=== PATIENT | female | born 1965 | race Hispanic/Latino ===

== ENCOUNTER 2016-11-16 12:30 | Emergency (ER) | payer BC ==
[2016-11-16 12:34] VITALS: BMI 42.5
[2016-11-16 12:39] VITALS: BP 143/87; PULSE 78; RESP 20; TEMP 98.7; O2SAT 99
--- NOTE | 2016-11-16 13:36 | ED PDOC ---
Arrival/HPI - History of Present Illness Time/Duration: < week Symptom Onset: Sudden Symptom Course: Unchanged Quality: Aching Severity Level: 10 - General Chief Complaint: Abnormal Skin Integrity Time Seen by Provider: 11/16/16 13:14 - History of Present Illness Narrative History of Present Illness (Text): 11/16/16 13:33 51 y/o female with past medical history of DM, HTN presents with 2 draining abscesses that began about 1 week ago. Patient states that she occasionally gets abscesses but has never had an I&D procedure. Patient also c/o F/C one day in past week. Patient denies popping the abscess herself. (Alexis,Cecy) Past Medical History - Provider Review Nursing Documentation Reviewed: Yes - Travel History Have you recently traveled outside [place] w/in the past 3 mons?: No - Infectious Disease Hx of Infectious Diseases: None - Past Medical History Past Medical History: No Previous - Cardiac Hx Cardiac Disorders: Yes Hx Hypertension: Yes - Pulmonary Hx Respiratory Disorders: No - Neurological Hx Neurological Disorder: No - HEENT Hx HEENT Disorder: No - Renal Hx Renal Disorder: No - Endocrine/Metabolic Hx Endocrine Disorders: Yes Hx Diabetes Mellitus Type 2: Yes - Hematological/Oncological Hx Blood Disorders: No - Integumentary Hx Dermatological Disorder: No - Musculoskeletal/Rheumatological Hx Musculoskeletal Disorders: No - Gastrointestinal Hx Gastrointestinal Disorders: No - Genitourinary/Gynecological Hx Genitourinary Disorders: No - Psychiatric Hx Psychophysiologic Disorder: No Hx Depression: No Hx Emotional Abuse: No Hx Physical Abuse: No Hx Substance Use: No - Past Surgical History Past Surgical History: No Previous - Anesthesia Hx Anesthesia: Yes Hx Anesthesia Reactions: No - Suicidal Assessment Feels Threatened In Home Enviroment: No Family/Social History - Physician Review Nursing Documentation Reviewed: Yes Family/Social History: Unknown Family HX Smoking Status: Light Smoker < 10 Cigarettes Daily Hx Alcohol Use: Yes Hx Substance Use: No Allergies/Home Meds Allergies/Adverse Reactions: Allergies acetaminophen [From Percocet] Adverse Reaction (Verified 11/16/16 12:34) VOMITING oxycodone [From Percocet] Adverse Reaction (Verified 11/16/16 12:34) VOMITING Home Medications: Home Meds Medication Instructions Recorded Confirmed Lisinopril [Zestril] 20 mg PO DAILY 11/16/16 11/16/16 Review of Systems - Review of Systems Constitutional: Fevers ENT: Normal. absent: Sore Throat, Rhinorrhea, Sinus Congestion Respiratory: Normal. absent: SOB, Cough, Sputum, Wheezing Cardiovascular: Normal. absent: Chest Pain, Palpitations, Calf Pain Gastrointestinal: Normal. absent: Abdominal Pain, Constipation, Diarrhea, Nausea, Vomiting Genitourinary Female: Normal. absent: Dysuria, Frequency Musculoskeletal: Normal. absent: Arthralgias, Back Pain Skin: Abscess. absent: Rash, Pruritis Neurological: Normal. absent: Headache, Dizziness Endocrine: Normal. absent: Diaphoresis Physical Exam Vital Signs Reviewed: Yes Temperature: Afebrile Blood Pressure: Normal Pulse: Regular Respiratory Rate: Normal Appearance: Positive for: Well-Appearing, Non-Toxic, Comfortable Pain Distress: Severe Mental Status: Positive for: Alert and Oriented X 3 - Systems Exam Head: Present: Atraumatic, Normocephalic Pupils: Present: PERRL Mouth: Present: Moist Mucous Membranes Respiratory/Chest: Present: Clear to Auscultation. No: Good Air Exchange, Accessory Muscle Use, Rales, Rhonchi Cardiovascular: Present: Regular Rate and Rhythm, Normal S1, S2. No: Murmurs, Rub, Gallop, Muffled Abdomen: Present: Normal Bowel Sounds. No: Tenderness, Distention, Peritoneal Signs, Guarding Genitourinary/Pelvic Exam: No: Normal External Genitalia (B/L bartholyn cyst. left side open and draining ) Lower Extremity: No: Edema, CALF TENDERNESS Neurological: Present: GCS=15 Skin: Present: Warm, Dry, Normal Color Psychiatric: Present: Alert, Oriented x 3, Normal Insight, Normal Concentration Medical Decision Making ED Course and Treatment: 11/16/16 13:46 51 year old female with uncontrolled DM presents with B/L abscesses right outside of labia majora. Patient states that she has history of recurrent abscesses all over her body which drain on their own. Patient states that she will wait for her right sided abscess to drain on its own. Left sided abscess is open and draining. Patient is offered I&D but she refuses stating that she has never needed this procedure in the past. Patient is explained that if abscess gets bigger or skin around the abscess gets red and painful, she is to return to ED. Patient will be given PO abx for home. (Cecy Espinoza) 11/16/16 14:24 Patient Seen With Resident: In agreement with resident note which contains more details about the patient except the following. Patient states that her glucose is controlled. She also denies trauma. Patient was seen and evaluated with resident. Came up with plan and treatment together. 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 There is no involvement of the labia majora. Left abscess is 2cm and open with mild erythema, no pus, no warmth. Right abscess is 1.5 cm with area of drainage but no pus or erythema or warmth but does have an area of fluctuance. I explained to patient that it would be best to drain the area of fluctuance on the right but patient refused. She states that she would rather let it drain herself and just take antibiotics. She states it's always healed this way and she doesn't want it cut open. I explained the importance an I&D and how it will help heal the abscess but she refuses. I told her that this could lead to worsening abscess and infection which could lead to disability, worsening symptoms and or . She was given time to think this over with her and still refused. I advised her to please return if symptoms worsen or any other concern. She has no PMD but states she will get one with her insurance. (Rojelio Moreno) Disposition/Present on Arrival - Present on Arrival Any Indicators Present on Arrival: Yes History of DVT/PE: No History of Uncontrolled Diabetes: Yes Urinary Catheter: No History of Decub. Ulcer: No History Surgical Site Infection Following: None - Disposition Have Diagnosis and Disposition been Completed?: Yes Disposition Time: 13:59 Patient Plan: Discharge - Disposition Diagnosis: Abscess Disposition: HOME/ ROUTINE Condition: STABLE Additional Instructions: Keely Collins, thank you for letting us take care of you today. Your provider was Dr. Cecy Espinoza. You were treated for abscess. The emergency medical care you received today was directed at your acute symptoms. If you were prescribed any medication, please fill it and take as directed. It may take several days for your symptoms to resolve. Return to the Emergency Department if your symptoms worsen, do not improve, or if you have any other problems. Please contact your doctor or call one of the physicians/clinics you have been referred to that are listed on the Patient Visit Information form that is included in your discharge packet. Bring any paperwork you were given at discharge with you along with any medications you are taking to your follow up visit. Our treatment cannot replace ongoing medical care by a primary care provider (PCP) outside of the emergency department. Thank you for allowing the [facility] team to be part of your care today. If you had an X-Ray or CT scan: A Radiologist will review the ED reading if any change in treatment is needed we will contact you. If you had a blood, urine, or wound culture: It will take several days for the results, if any change in treatment is needed we will contact you. If you had an STI test: It will take 48 hours for the results. Please call after 1 week if you have not heard back. Prescriptions: Cephalexin [Keflex] 500 mg PO BID 14 Days Sulfamethoxazole/Trimethoprim [Bactrim DS 800 mg-160 mg] 1 tab PO BID 14 Days Referrals: PCP,NO [Primary Care Provider] - Follow up with primary Forms: [employer] ([place])
== END 2016-11-16 14:37 | disposition home or self-care (01) ==
LOC: ED 12:30
DX: N76.4 Abscess of vulva (principal); F17.210 Nicotine dependence, cigarettes, uncomplicated; E11.9 Type 2 diabetes mellitus without complications; I10 Essential (primary) hypertension